=== PATIENT | male | born 1955 | race Caucasian/White ===

== ENCOUNTER 2018-06-06 10:37 | Outpatient (REF) | payer BC, SELFPAY ==
[2018-06-06 13:10] LABS: Cholesterol 220 mg/dL (50-200); Glucose 92 mg/dL (70-100); HDL Cholesterol 52 mg/dL (40-60); LDL CHOLESTEROL 150 mg/dL (<100); Triglyceride 147 mg/dL (30-150)
== END 2018-06-06 10:57 ==
LOC: NCHCN 10:37
PROVIDERS: PCP Family Medicine; Visit Provider Family Medicine
DX: E78.5 Hyperlipidemia, unspecified (principal)
CPT/HCPCS: 80061; 82947; 83721

== ENCOUNTER 2018-11-06 13:02 | Outpatient (REF) | payer BC, SELFPAY ==
[2018-11-07 11:12] LABS: Hepatitis C Ab w Rflx HCV PCR Negative (NEGAT)
== END 2018-11-06 13:22 ==
LOC: NCHCN 13:02
PROVIDERS: PCP Family Medicine; Visit Provider Family Medicine
DX: Z11.59 Encounter for screening for other viral diseases (principal)
CPT/HCPCS: 86803

== ENCOUNTER 2019-04-17 09:57 | Outpatient (REF) | payer BC, SELFPAY ==
[2019-04-17 14:20] LABS: Calculated LDL 154 mg/dL; Cholesterol 227 mg/dL (50-200); Glucose 98 mg/dL (70-100); HDL Cholesterol 51 mg/dL (40-60); Triglyceride 111 mg/dL (30-150)
== END 2019-04-17 10:17 ==
LOC: NCHCN 09:57
PROVIDERS: PCP Family Medicine; Visit Provider Family Medicine
DX: Z00.00 Encounter for general adult medical examination without abnormal findings (principal); E78.5 Hyperlipidemia, unspecified; R53.83 Other fatigue
CPT/HCPCS: 80061; 82947

== ENCOUNTER 2021-01-23 20:07 | Outpatient (REF) | payer OTHER, SELFPAY ==
[2021-01-23 18:22] LABS: HCT 50.3 % (40.0-50.0); HGB 16.4 g/dL (13.5-17.5); MCHC 32.6 % (32.0-36.0); MCV 92.1 fL (80-95); MPV 9.2 fL (8.0-11.0); Platelet Count 321 10^3/uL (130-400); RBC 5.46 10^6/uL (4.36-5.78); RDW 12.7 % (11.8-14.1); WBC 7.01 10^3/uL (4.4-10.8)
[2021-01-23 19:51] LABS: ALT 30 U/L (16-63); AST 17 U/L (15-37); Albumin 4.2 g/dL (3.4-5.0); Alkaline Phosphatase 101 U/L (46-116); Anion Gap 12.3 mmol/L (3-11); BUN 26 mg/dL (7-18); Bilirubin, Total 0.4 mg/dL (0.2-1.0); CO2 25.7 mmol/L (21.0-32.0); Calcium 9.6 mg/dL (8.5-10.1); Calculated LDL 171 mg/dL (<100); Chloride 104 mmol/L (98-107); Cholesterol 245 mg/dL (<200); Glucose 97 mg/dL (74-106); HDL Cholesterol 50 mg/dL (40-60); Potassium 4.7 mmol/L (3.5-5.1); Sodium 142 mmol/L (136-145); Total Protein 6.9 g/dL (6.4-8.2); Triglyceride 120 mg/dL (<150)
[2021-01-24 18:19] LABS: PSA, Screening 0.8 ng/mL (0.0-4.5)
== END 2021-01-23 20:08 | disposition home or self-care (01) ==
LOC: NCHCN 20:07
PROVIDERS: PCP Family Medicine; Visit Provider Family Medicine
DX: Z00.00 Encounter for general adult medical examination without abnormal findings (principal); F98.8 Other specified behavioral and emotional disorders with onset usually occurring in childhood and adolescence; J45.20 Mild intermittent asthma, uncomplicated; E78.5 Hyperlipidemia, unspecified
CPT/HCPCS: 80053; 80061; 84153; 85027

== ENCOUNTER 2023-02-18 08:36 | Outpatient (REF) | payer MEDICARE, SELFPAY ==
[2023-02-18 14:49] LABS: HCT 47.8 % (40.0-50.0); MCH 30.8 pg (27.0-33.0); MCHC 33.5 % (32.0-36.0); MCV 92 fL (80-95); MPV 9.2 fL (8.0-11.0); Platelet Count 311 10^3/uL (130-400); RDW 13.2 % (11.8-14.1); RDW-SD 44.7 fL; WBC 5.95 10^3/uL (4.4-10.8)
[2023-02-18 15:19] LABS: ALT 32 U/L (16-63); AST 26 U/L (15-37); Alkaline Phosphatase 129 U/L (46-116); Anion Gap 7.9 mmol/L (3-11); BUN 29 mg/dL (7-18); Bilirubin, Total 0.7 mg/dL (0.2-1.0); CO2 28.1 mmol/L (21.0-32.0); Calcium 9.9 mg/dL (8.5-10.1); Calculated LDL 159 mg/dL (<100); Chloride 106 mmol/L (98-107); Cholesterol 224 mg/dL (<200); Estimated GFR 81.98 (mL/min/1.73m2); Glucose 94 mg/dL (74-106); HDL Cholesterol 44 mg/dL (40-60); Potassium 5.7 mmol/L (3.5-5.1); Sodium 142 mmol/L (136-145); Total Protein 7.2 g/dL (6.4-8.2); Triglyceride 108 mg/dL (<150)
[2023-02-18 15:32] LABS: Vitamin D 25 Total 18.9 ng/mL (30-100)
== END 2023-02-18 08:37 | disposition home or self-care (01) ==
LOC: NCHCN 08:36
PROVIDERS: PCP Family Medicine; Visit Provider Family Medicine
DX: E78.5 Hyperlipidemia, unspecified (principal); E55.9 Vitamin D deficiency, unspecified; R03.0 Elevated blood-pressure reading, without diagnosis of hypertension; R53.83 Other fatigue; M17.11 Unilateral primary osteoarthritis, right knee; R55 Syncope and collapse
CPT/HCPCS: 80053; 80061; 82306; 85027

== ENCOUNTER 2023-02-25 11:36 | Outpatient (REF) | payer MEDICARE, SELFPAY ==
[2023-02-26 09:10] LABS: HBs Antibody, Quant 13.8 mIU/mL (See Note); Hepatitis B Surface Ab Positive (See Note)
== END 2023-02-25 11:37 | disposition home or self-care (01) ==
LOC: NCHCN 11:36
PROVIDERS: PCP Family Medicine; Visit Provider Family Medicine
DX: Z00.00 Encounter for general adult medical examination without abnormal findings (principal)
CPT/HCPCS: 86706

== ENCOUNTER 2023-07-30 11:33 | Outpatient (RCR) | payer MEDICARE, SELFPAY | END 2023-08-14 23:59 | disposition home or self-care (01) | LOC: CR 11:33 | PROVIDERS: PCP Family Medicine; Visit Provider Internal Medicine Cardiovascular Disease | DX: I71.010 Dissection of ascending aorta (principal); Z95.2 Presence of prosthetic heart valve; Z51.89 Encounter for other specified aftercare ==

== ENCOUNTER 2023-09-09 13:00 | Outpatient (RCR) | payer MEDICARE, SELFPAY | END 2023-09-12 23:59 | disposition home or self-care (01) | LOC: CR 13:00 | PROVIDERS: PCP Family Medicine; Visit Provider Internal Medicine Cardiovascular Disease | DX: I71.010 Dissection of ascending aorta (principal); Z95.2 Presence of prosthetic heart valve; Z51.89 Encounter for other specified aftercare | CPT/HCPCS: S9472 ==

== ENCOUNTER 2023-10-11 12:56 | Outpatient (RCR) | payer MEDICARE, SELFPAY | END 2023-10-13 23:59 | disposition home or self-care (01) | LOC: CR 12:56 | PROVIDERS: PCP Family Medicine; Visit Provider Internal Medicine Cardiovascular Disease | DX: I71.010 Dissection of ascending aorta (principal); Z95.2 Presence of prosthetic heart valve; Z51.89 Encounter for other specified aftercare | CPT/HCPCS: S9472 ==

== ENCOUNTER 2023-11-11 13:37 | Outpatient (RCR) | payer MEDICARE, SELFPAY | END 2023-11-12 23:59 | disposition home or self-care (01) | LOC: CR 13:37 | PROVIDERS: PCP Family Medicine; Visit Provider Internal Medicine Cardiovascular Disease | DX: I71.010 Dissection of ascending aorta (principal); Z51.89 Encounter for other specified aftercare | CPT/HCPCS: S9472 ==

== ENCOUNTER 2023-12-04 13:00 | Outpatient (RCR) | payer MEDICARE, SELFPAY | END 2023-12-13 23:59 | disposition home or self-care (01) | LOC: CR 13:00 | PROVIDERS: PCP Family Medicine; Visit Provider Internal Medicine Cardiovascular Disease | DX: I71.010 Dissection of ascending aorta (principal); Z95.2 Presence of prosthetic heart valve; Z51.89 Encounter for other specified aftercare | CPT/HCPCS: S9472 ==